=== PATIENT | male | born 1970 | race African-American/Black ===

== ENCOUNTER 2018-09-08 05:25 | Emergency (ER) | payer MEDICAID ==
[~2018-09-08] VITALS: Ht 190.5 cm; Wt 100.0 kg
[~2018-09-08 05:25] MED LIST: NAPR375T PO; TRAM50TA3 PO
[2018-09-08] MEDS ORDERED: TETANUS, DIPHTHERIA, PERTUSSIS VAC/PF 0.5ML (>7YR OLD) IM ONE (07:00)
[2018-09-08] MEDS ORDERED: IBUPROFEN 600MG TABLET PO ONE (07:00)
[2018-09-08 08:42] VITALS: BP 135/85
== END 2018-09-08 08:45 | disposition home or self-care (01) ==
LOC: ER 05:25
DX: S02.2XXA Fracture of nasal bones, initial encounter for closed fracture (principal); S00.83XA Contusion of other part of head, initial encounter; F17.200 Nicotine dependence, unspecified, uncomplicated; Y09 Assault by unspecified means; Y93.89 Activity, other specified; Y92.89 Other specified places as the place of occurrence of the external cause; Y99.8 Other external cause status
CPT/HCPCS: 70486; 90471; 90715; 99284; 99406

== ENCOUNTER 2021-09-24 13:41 | Emergency (ER) | payer MEDICAID, OTHER ==
[~2021-09-24] VITALS: Ht 190.5 cm; Wt 105.0 kg
[2021-09-24 13:44] VITALS: BP 121/74
[2021-09-24] MEDS ORDERED: FAMOTIDINE 20MG TABLET PO ONE (14:30)
[2021-09-24] MEDS ORDERED: ONDANSETRON 4MG ODT PO ONE (14:30)
[2021-09-24 15:04] LABS: ETHANOL BLOOD 72 mg/dL
[2021-09-24] MEDS ORDERED: OMEP20CA14 MT (17:27)
== END 2021-09-24 17:54 | disposition home or self-care (01) ==
LOC: ER 13:52
DX: K21.9 Gastro-esophageal reflux disease without esophagitis (principal)
CPT/HCPCS: 36415; 80320; 84484; 99283; Q0162; G0480